=== PATIENT | male | born 1945 | race Caucasian/White ===

== ENCOUNTER 2016-04-09 20:15 | Inpatient (IN) | payer MEDICARE, MEDICAID ==
[~2016-04-09 20:15] MED LIST: ALEVE220 M2 PO; CLEOCIN150 MG/CA1 PO; NORCO 5/3251 TA1 PO
[2016-04-09] MEDS ORDERED: SYMBICORT 160-1 PUFF INH (20:25)
[2016-04-09] MEDS ORDERED: SYNTHROID88 MC1 PO (20:25)
[2016-04-09] MEDS ORDERED: PRILOSEC OTC20 M1 PO (20:26)
[2016-04-09 21:20] LABS: ABG CO2 ARTERIAL 27 mmol/L (21-27); ARTERIAL BLD GAS O2 SATURATION 93 % (95-98); ARTERIAL BLOOD GAS PCO2 40 mmHg (32-45); ARTERIAL PO2 70 mmHg (70-100); BICARBONATE 26 mmol/L (21-28); BLOOD GAS BASE EXCESS 1 mM/L (-/+3); PH 7.42 Units (7.35-7.45)
[2016-04-09 21:28] LABS: HCT-HEMATOCRIT 43.2 % (36.0-53.5); HGB-HEMOGLOBIN 14.2 gm/dl (13.5-17.0); MCH (MEAN CORPUSCULAR HGB) 29.3 pg (28.0-32.0); MCHC MEAN CORPUSCULAR HGB CONC 32.9 % (32.0-36.0); MCV (MEAN CELL VOLUME) 89.3 fl (82.0-96.0); MEAN PLATELET VOLUME 11.2 cmc (9.4-12.4); NEUTROPHIL-AUTOMATED 20.2 tho/cmm (1.6-8.0); PLATELET COUNT 255 tho/cmm (150-450); RED BLOOD COUNT 4.84 mil/cmm (4.40-5.70); RED CELL DISTRIBUTION WIDTH 14.2 % (12.4-16.4); WHITE BLOOD COUNT 21.8 tho/cmm (4.0-10.0)
[2016-04-09 21:44] LABS: ALB/GLOB RATIO 1.3 (0.8-2.0); ALBUMIN 4.1 g/dl (3.5-5.2); ALKALINE PHOSPHATASE 69 U/L (40-129); ALT/SGPT 11 U/L (0-41); ANION GAP 16 mmol/L (5-15); AST/SGOT 17 U/L (0-40); BILIRUBIN,TOTAL 0.3 mg/dl (0.0-1.0); BLOOD UREA NITROGEN 38 mg/dl (6-25); CALCIUM 12.2 mg/dl (8.6-10.2); CARBON DIOXIDE-VENOUS 28 mmol/L (22-29); CHLORIDE 97 mmol/L (98-110); CREATININE 1.55 mg/dl (0.67-1.17); GLUCOSE 204 mg/dl (65-120); POTASSIUM 3.7 mmol/L (3.4-5.0); SODIUM 141 mmol/L (135-146); eGFR VALUE FOR BLACK 54 mL/Min
[2016-04-09 21:46] LABS: TROPONIN T <0.01 ng/ml (<0.01)
[2016-04-09 21:49] LABS: BAND % 22 % (0-20); BAND ABSOLUTE COUNT 4.8 tho/cmm (0-2.0)
[2016-04-09 22:00] LABS: PROCALCITONIN 0.66 ng/ml (0.05-0.09)
[2016-04-10 00:31] LABS: INR 1.2 INR (0.9-1.1); PROTHROMBIN TIME 13.6 SECONDS (9.0-13.6)
[2016-04-10 00:37] LABS: C-REACTIVE PROTEIN 0.9 mg/dl (0-0.5)
[2016-04-10 00:46] LABS: TSH-THYROID STIMULATING HORM. 5.29 uIU/ml (0.40-5.50)
[2016-04-10 03:26] LABS: TROPONIN T <0.01 ng/ml (<0.01)
[2016-04-10 05:20] LABS: HGB-HEMOGLOBIN 11.5 gm/dl (13.5-17.0); IMMATURE GRANULOCYTES ABSOLUTE 0.08 tho/cmm (0-0.03); IMMATURE GRANULOCYTES PERCENT 0.3 % (0-0.3); LYMPH % 5.9 % (20-45); LYMPH ABSOLUTE COUNT 1.4 tho/cmm (0.8-4.5); MCH (MEAN CORPUSCULAR HGB) 28.5 pg (28.0-32.0); MCHC MEAN CORPUSCULAR HGB CONC 31.9 % (32.0-36.0); MCV (MEAN CELL VOLUME) 89.1 fl (82.0-96.0); MEAN PLATELET VOLUME 10.8 cmc (9.4-12.4); MONO % 0.9 % (0-12); MONOCYTE ABSOLUTE COUNT 0.2 tho/cmm (0.0-1.2); NEUTROPHIL ABSOLUTE COUNT 21.6 tho/cmm (1.6-8.0); NEUTROPHIL-AUTOMATED 21.6 tho/cmm (1.6-8.0); NEUTROPHILS % 92.9 % (40-80); PLATELET COUNT 224 tho/cmm (150-450); RED BLOOD COUNT 4.04 mil/cmm (4.40-5.70); RED CELL DISTRIBUTION WIDTH 14.4 % (12.4-16.4); WHITE BLOOD COUNT 23.3 tho/cmm (4.0-10.0)
[2016-04-10 05:31] LABS: ANION GAP 13 mmol/L (5-15); BLOOD UREA NITROGEN 37 mg/dl (6-25); CALCIUM 10.3 mg/dl (8.6-10.2); CARBON DIOXIDE-VENOUS 28 mmol/L (22-29); CHLORIDE 102 mmol/L (98-110); CREATININE 1.41 mg/dl (0.67-1.17); GLUCOSE 154 mg/dl (65-120); POTASSIUM 4.1 mmol/L (3.4-5.0); SODIUM 143 mmol/L (135-146); eGFR VALUE FOR BLACK 60 mL/Min
[2016-04-10 09:40] LABS: TROPONIN T <0.01 ng/ml (<0.01)
[2016-04-11 07:01] LABS: HCT-HEMATOCRIT 31.9 % (36.0-53.5); HGB-HEMOGLOBIN 10.4 gm/dl (13.5-17.0); IMMATURE GRANULOCYTES ABSOLUTE 0.07 tho/cmm (0-0.03); IMMATURE GRANULOCYTES PERCENT 0.3 % (0-0.3); LYMPH % 8.4 % (20-45); LYMPH ABSOLUTE COUNT 1.7 tho/cmm (0.8-4.5); MCH (MEAN CORPUSCULAR HGB) 29.1 pg (28.0-32.0); MCHC MEAN CORPUSCULAR HGB CONC 32.6 % (32.0-36.0); MCV (MEAN CELL VOLUME) 89.1 fl (82.0-96.0); MEAN PLATELET VOLUME 11.2 cmc (9.4-12.4); MONO % 0.2 % (0-12); MONOCYTE ABSOLUTE COUNT 0.1 tho/cmm (0.0-1.2); NEUTROPHIL ABSOLUTE COUNT 18.3 tho/cmm (1.6-8.0); NEUTROPHIL-AUTOMATED 18.3 tho/cmm (1.6-8.0); NEUTROPHILS % 91.1 % (40-80); PLATELET COUNT 220 tho/cmm (150-450); RED BLOOD COUNT 3.58 mil/cmm (4.40-5.70); WHITE BLOOD COUNT 20.1 tho/cmm (4.0-10.0)
[2016-04-11 07:13] LABS: ANION GAP 8 mmol/L (5-15); BLOOD UREA NITROGEN 31 mg/dl (6-25); CALCIUM 8.6 mg/dl (8.6-10.2); CARBON DIOXIDE-VENOUS 27 mmol/L (22-29); CHLORIDE 106 mmol/L (98-110); CREATININE 1.11 mg/dl (0.67-1.17); GLUCOSE 149 mg/dl (65-120); POTASSIUM 4.5 mmol/L (3.4-5.0); SODIUM 141 mmol/L (135-146); eGFR VALUE FOR BLACK >60 mL/Min
[2016-04-12 06:21] LABS: BASO % 0.1 % (0-2); HCT-HEMATOCRIT 30.1 % (36.0-53.5); HGB-HEMOGLOBIN 9.8 gm/dl (13.5-17.0); IMMATURE GRANULOCYTES ABSOLUTE 0.09 tho/cmm (0-0.03); IMMATURE GRANULOCYTES PERCENT 0.5 % (0-0.3); LYMPH % 4.5 % (20-45); LYMPH ABSOLUTE COUNT 0.8 tho/cmm (0.8-4.5); MCH (MEAN CORPUSCULAR HGB) 28.8 pg (28.0-32.0); MCHC MEAN CORPUSCULAR HGB CONC 32.6 % (32.0-36.0); MCV (MEAN CELL VOLUME) 88.5 fl (82.0-96.0); MEAN PLATELET VOLUME 11.1 cmc (9.4-12.4); MONO % 7.7 % (0-12); MONOCYTE ABSOLUTE COUNT 1.3 tho/cmm (0.0-1.2); NEUTROPHIL ABSOLUTE COUNT 14.4 tho/cmm (1.6-8.0); NEUTROPHIL-AUTOMATED 14.4 tho/cmm (1.6-8.0); NEUTROPHILS % 87.2 % (40-80); PLATELET COUNT 232 tho/cmm (150-450); WHITE BLOOD COUNT 16.6 tho/cmm (4.0-10.0)
[2016-04-12 06:35] LABS: ANION GAP 11 mmol/L (5-15); BLOOD UREA NITROGEN 23 mg/dl (6-25); CALCIUM 8.4 mg/dl (8.6-10.2); CARBON DIOXIDE-VENOUS 24 mmol/L (22-29); CHLORIDE 106 mmol/L (98-110); CREATININE 1.04 mg/dl (0.67-1.17); GLUCOSE 124 mg/dl (65-120); POTASSIUM 3.8 mmol/L (3.4-5.0); SODIUM 141 mmol/L (135-146); eGFR VALUE FOR BLACK >60 mL/Min
[2016-04-13 05:59] LABS: MCV (MEAN CELL VOLUME) 88.8 fl (82.0-96.0); PLATELET COUNT 212 tho/cmm (150-450); RED CELL DISTRIBUTION WIDTH 14.9 % (12.4-16.4)
[2016-04-13] MEDS ORDERED: LEVAQUIN750 M1 PO (13:44)
[2016-04-13] MEDS ORDERED: ASPIRIN EC81 MG PO (13:44)
[2016-04-13] MEDS ORDERED: PROTONIX40 M2 PO (13:45)
[2016-04-13] MEDS ORDERED: CARAFATE1 G2 PO (13:45)
[2016-04-13] MEDS ORDERED: VENTOLIN HFA18 G2 INH (13:48)
== END 2016-04-13 18:15 | DRG 871 ==
LOC: EDMED 20:15 → EMR2 23:04 → PCUA 04-10 00:20 → 5WE 04-12 20:06
PROVIDERS: Family Medicine; Internal Medicine; Internal Medicine Cardiovascular Disease; ADMIT Hospitalist
PROC: 5A09357 Assistance with Respiratory Ventilation, Less than 24 Consecutive Hours, Continuous Positive Airway Pressure (ICD-10-PCS; principal; 2016-04-10)
PROC: 0DB38ZX Excision of Lower Esophagus, Via Natural or Artificial Opening Endoscopic, Diagnostic (ICD-10-PCS; 2016-04-12)
DX: A41.9 Sepsis, unspecified organism (principal); J96.01 Acute respiratory failure with hypoxia; N17.9 Acute kidney failure, unspecified; E87.2 Acidosis; K22.11 Ulcer of esophagus with bleeding; J18.1 Lobar pneumonia, unspecified organism; J44.0 Chronic obstructive pulmonary disease with (acute) lower respiratory infection; I24.8 Other forms of acute ischemic heart disease; R13.10 Dysphagia, unspecified; D64.9 Anemia, unspecified; J44.1 Chronic obstructive pulmonary disease with (acute) exacerbation; Z68.1 Body mass index [BMI] 19.9 or less, adult; E03.9 Hypothyroidism, unspecified; E83.52 Hypercalcemia; K25.9 Gastric ulcer, unspecified as acute or chronic, without hemorrhage or perforation; R65.20 Severe sepsis without septic shock; F17.210 Nicotine dependence, cigarettes, uncomplicated; Z23 Encounter for immunization; Z79.82 Long term (current) use of aspirin; Z87.11 Personal history of peptic ulcer disease; Z91.19 Patient's noncompliance with other medical treatment and regimen; K44.9 Diaphragmatic hernia without obstruction or gangrene
CPT/HCPCS: G0009; J1650; J1956; J2920; J2930; J3370; J7030; J7050